=== PATIENT | male | born 1975 | race Caucasian/White ===

== ENCOUNTER 2018-11-25 00:53 | Emergency (ER) | payer SELFPAY ==
[~2018-11-25] VITALS: Ht 177.8 cm; Wt 70.0 kg
[2018-11-25 00:57] VITALS: BP 155/90
== END 2018-11-25 04:49 | disposition left against medical advice (07) ==
LOC: EDBD 00:53 → ER 00:53
DX: Z53.21 Procedure and treatment not carried out due to patient leaving prior to being seen by health care provider (principal)